=== PATIENT | male | born 1955 | race Caucasian/White ===

== ENCOUNTER 2017-03-29 19:08 | Emergency (ER) | payer OTHER ==
[2017-03-29 19:38] VITALS: BP 154/70
[2017-03-29] MEDS ORDERED: NS 0.9% 1000 ML* 1,000 ML IV ONE (19:44)
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
== END 2017-03-29 19:53 | disposition short-term general hospital (02) ==
LOC: UCEAST 19:08
DX: R41.82 Altered mental status, unspecified (principal); R00.1 Bradycardia, unspecified; R56.9 Unspecified convulsions; Z88.4 Allergy status to anesthetic agent
CPT/HCPCS: 93005; 96374; 99215; G0463

== ENCOUNTER 2017-03-29 20:07 | Observation (INO) | payer OTHER ==
[2017-03-29] MEDS ORDERED: NS 0.9% 1000 ML* 2,000 ML IV ONE (21:02)
--- NOTE | 2017-03-29 21:35 | RAD ---
INDICATION: Swelling at the right thumb after a fall COMPARISON: None. TECHNIQUE: 4 views of the right hand were obtained. FINDINGS: Involving the radial aspect proximal pole of the right thumb is still phalanx there is a minimally displaced fracture extending from the radial margin of the bone to the articulating surface of the proximal head. On the lateral view radiograph there is a minimally displaced fracture along the dorsal margin of the proximal pole of the right thumb distal phalanx. Remaining visualized bones are intact and appropriately aligned. IMPRESSION: Slightly displaced, comminuted fracture involving the proximal pole of the right thumb distal phalanx.
--- NOTE | 2017-03-29 21:36 | RAD ---
INDICATION: Syncope COMPARISON: None TECHNIQUE: PA and lateral views of the chest were obtained. FINDINGS: The heart and mediastinum are normal in size and contour. There is faint linear density at the left lung base. Otherwise the lungs are grossly clear. There is no evidence of large pleural effusion. Multilevel degenerative changes of the mid-level thoracic spine include loss of intervertebral disc height and mild anterior marginal osteophyte formation. There is no radiographic evidence of free air beneath the diaphragm IMPRESSION: POTENTIAL ATELECTASIS AT THE LEFT LUNG BASE WITHOUT OTHER ACUTE CARDIOPULMONARY ABNORMALITY.
--- NOTE | 2017-03-29 21:38 | RAD ---
INDICATION: Possible seizure activity. COMPARISON: None. TECHNIQUE: Contiguous axial sections of the brain were obtained from the skull base to the vertex without contrast. 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 Otherwise the ventricles, cisterns and sulci are within normal limits. The yusuf-white matter differentiation is adequately maintained and there is no sulcal effacement. No significant focal abnormality or mass effect is present. There is no evidence for intracranial hemorrhage. No significant focal osseous abnormality is present. The visualized portion of the paranasal sinuses and mastoid air cells appear clear. IMPRESSION: No CT apparent acute intracranial abnormality.
[2017-03-29 21:53] LABS: Hematocrit 40 % (42-52); Hemoglobin 13.3 g/dl (14.0-18.0); Mean Corpuscular HGB Conc 33 g/dl (31-36); Mean Corpuscular Hemoglobin 29 pg (27-31); Mean Corpuscular Volume 88 fL (80-94); Mean Platelet Volume 8 um3 (7.4-10.4); Red Blood Count 4.55 10^6/ul (4.0-5.4); Red Cell Distribution Width 14 % (10.5-15); White Blood Count 9.4 10^3/ul (3.5-10.8)
[2017-03-29 22:05] LABS: ALT 14 U/L (7-52); AST 19 U/L (13-39); Albumin 4.2 g/dL (3.2-5.2); Alcohol < 10 mg/dL (<10); Alkaline Phosphatase 42 U/L (34-104); Anion Gap 4 mmol/L (2-11); BUN/Creatinine Ratio 16.3 (8-20); Blood Urea Nitrogen 17 mg/dL (6-24); CO2 Carbon Dioxide 28 mmol/L (22-32); Calcium 8.8 mg/dL (8.6-10.3); Chloride 104 mmol/L (101-111); Creatine Kinase 274 U/L (10-223); EGFR African American 93.1 (>60); EGFR Non-African American 72.4 (>60); Globulin 2.4 g/dL (2-4); Glucose 115 mg/dL (70-100); Magnesium 1.9 mg/dL (1.9-2.7); Potassium 3.8 mmol/L (3.5-5.0); Sodium 136 mmol/L (133-145); Total Protein 6.6 g/dL (6.4-8.9)
[2017-03-29 22:13] LABS: TSH (Thyroid Stimulating Horm) 3.13 mcIU/mL (0.34-5.60)
[2017-03-29] MEDS ORDERED: Acetaminophen TAB* 325 MG PO PRN (22:47)
[2017-03-29] MEDS ORDERED: oxyCODONE/Acetamin 5/325 MG* TAB PO PRN (22:47)
[2017-03-29] MEDS ORDERED: NS 0.9% 1000 ML* 1,000 ML IV SCH (23:00)
[2017-03-30 03:22] LABS: Urine Bacteria Absent (Absent)
[2017-03-30 03:26] LABS: Urine Bilirubin Negative (Negative); Urine Glucose N (Negative); Urine Nitrite N (Negative)
--- NOTE | 2017-03-30 05:09 | HP ---
CC: Dr. Suh * HISTORY AND PHYSICAL: DATE OF ADMISSION: 03/29/17 PRIMARY CARE PROVIDER: Dr. Suh. CHIEF COMPLAINT: Syncope. HISTORY OF PRESENT ILLNESS: Mr. Dai is a 61-year-old male with no significant past medical history apart from 2 syncopal episodes in the past. One episode was over 35 years ago, another one was approximately 20 years ago. Today, Mr. Dai was in his usual state of health and he was putting a lawnmower over a door in his basement. He tripped and he fell scraping his left knee. He fell on his outstretched hand and he actually fractured his right thumb. After the fall, he stood up, felt weak. Approximately, 2 minutes later, he felt that he was going to "faint." He sat down in a chair and his observed that his jaw was clenched, his eyes rolled back, and he was overall "rigid." His stated that after a few second period that he stopped breathing for a few seconds but then he woke up. Although he was somewhat slow to respond, he was not confused to remember what happened. He had no chest pain or shortness of breath. There was no incontinence present. In the past, the patient had similar episodes over 20 years ago and over 35 years ago. Thirty-five years ago, he had a vagal episode when someone was receiving IV in a hospital and he was witnessing that. He was diagnosed with vagal episodes in the past and he stated that today the sensation that he felt lightheadedness and needing to sit down today was very similar to the other 2 episodes when had episodes of syncope. The patient was evaluated at [facility] and when his IV was placed and he also felt near syncopal and his heart rate slowed down. He came into the ED, direct admission from [facility] for further evaluation. Here he was diagnosed with right thumb fracture. He is going to be placed on overnight observation with diagnosis of syncope. PAST MEDICAL HISTORY: 1. 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 2. History of status post vasectomy in 1989. 3. History of deviated septum repair. 4. [place] tooth extraction. MEDICATIONS: No medications at home. FAMILY HISTORY: Positive for father with lymphoma. SOCIAL HISTORY: The patient denies any tobacco or drug use. He drinks alcohol rarely. 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 He lives with his , who is his surrogate. REVIEW OF SYSTEMS: Please see history of present illness. Apart from the above mentioned, the patient stated that he had been sleeping poorly, waking up during the nighttime several times, and is snoring. He stated that his primary care provider scheduled him for a sleep test that is going to happen within the next few weeks. Otherwise, he had been in his usual state of health. All the remaining 14 systems were reviewed with the patient and were otherwise negative. PHYSICAL EXAMINATION GENERAL: The patient is a very pleasant 61-year-old male, who is in no acute distress. Alert, awake, and oriented x3. VITAL SIGNS: Blood pressure /73, heart rate of 52 and regular, respiratory rate 14, oxygen saturation 100% on room air, temperature of 98.1. HEENT: Head: Atraumatic, normocephalic. Eyes: Pupils equal and reactive to light and accommodation. Oropharynx clear. Mucosa moist. NECK: Supple. No JVD. No bruits bilaterally. RESPIRATORY: Clear to auscultation bilaterally. CARDIOVASCULAR: Regular rate and rhythm. No murmur. ABDOMEN: Soft, nontender. Bowel sounds present in all 4 quadrants. EXTREMITIES: There is no edema. Pulses are +2 bilaterally. No clubbing or cyanosis. NEUROLOGIC: Speech clear. Cranial nerves II through XII are grossly intact. Motor strength is 5/5 bilaterally. SKIN: On evaluation of the skin, the patient has scrapped left knee and a tiny abrasion on his right thumb. The right thumb is already placed in an immobilizer by the ED physician. DIAGNOSTIC STUDIES/LAB DATA: Shows white blood cell count of 9.4, hemoglobin of 13.3, hematocrit of 40, and platelets of 196. Sodium was 136, potassium 3.8, chloride 104, carbon dioxide 28, BUN 17, creatinine 1.04. Liver function tests are unremarkable. Total CPK of 274, which is slightly higher than normal. TSH was 3.13. Troponin of 0. Portable chest x-ray showed impression: "Potential atelectasis of the left lung base without other acute cardiopulmonary abnormality." Brain CT impression: "No CT apparent acute intracranial abnormality." The patient's EKG showed sinus bradycardia with a heart rate of 52 beats per minute. No ST changes. Hand x-ray on the right, impression: "Slightly displaced comminuted fracture involving the proximal pole of the right thumb, distal phalanx." ASSESSMENT AND PLAN: 1. 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 The patient had history of vagal syncopes in the past. Nevertheless, he does have baseline bradycardia and he may be prone to vagal episodes more so due to that. At this point, the ED provider recommended for the patient to be placed on observation, which is going to be done. He is going to be placed on telemetry monitored bed and a repeat troponin is going to be obtained in the morning. I will also obtain an EEG, although I suspect that once more the patient's episode was mostly vagal. 2. In regards of the patient's fractured right thumb, splint is going to be provided. The patient was recommended to follow up with Dr. Thompson as outpatient. 3. For DVT prophylaxis, the patient is at moderate risk and heparin subcutaneously is going to be provided. 4. The patient's code status is full and his surrogate is his . TIME SPENT : Approximately 62 minutes was spent on admission of the patient, more than half of the time was spent [id number] with the patient during the interview and physical exam. [id number]/[facility] #: [id number] ANIBAL
[2017-03-30] MEDS: Heparin VIAL(*) 5000 UNITS/ML VIAL (FIVE THOUSAND) SUBCUT SCH ×2 (05:19→14:13)
--- NOTE | 2017-03-30 07:50 | ED ---
yMnor Broderick Rebecca, scribed for Frank Aguila MD on 03/29/17 at 2036 . Neurological HPI - HPI Summary HPI Summary: Pt is a 61 y/o M BIBA from [facility] who presents to ED s/p fall and suspected seizure activity. At approximately 1830 tonight he was walking up his basement stairs with a lawnmower when he tripped. His heard him yell and she came in , with him appearing to have fallen on all fours with negative LOC and head trauma. 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 After sitting down, he hunched over with his upper extremities shaking while "staring ahead." His tried to arouse him, unsuccessfully. She then states he momentarily stopped breathing, took a deep breath in and stated "I'm okay." Sx aggravated by nothing, alleviated by spontaneous resolution. Currently c/o slight R thumb pain and a L knee abrasion. Denies CP, SOB, AGUILERA, visual changes, hip pain, weakness of the UE and LE and slurred speech. Reports he just returned from a 2-day trip at the [employer] which is physically extremely demanding. Prior seizure about 35 years ago for which he has not been taking medication as well as a vaso-vagal episode in the 90s. - History of Current Complaint Chief Complaint: EDSeizure Stated Complaint: SEIZURES Hx Obtained From: Patient Onset/Duration: Started hours ago, Resolved Timing: Intermittent Episodes Lasting: - 1 episode Number of Seizures: 1 - Suspected Pain Intensity: 0 Pain Scale Used: 0-10 Numeric Aggravating: Nothing Alleviating: Spontanious Resolution Associated Signs and Symptoms: Negative: Visual Changes, Headache, Impaired Speech, Chest Pain, Shortness of Breath - Allergy/Home Medications Allergies/Adverse Reactions: Allergies Allergy/AdvReac Type Severity Reaction Status Date / Time Procaine [From Novocain] Allergy Unknown Unknown Verified 03/29/17 19:38 Reaction Details PMH/Surg Hx/FS Hx/Imm Hx Cardiovascular History: Denies: Hx Congestive Heart Failure, Hx Pacemaker/ICD Sensory History: Denies: Hx Hearing Aid Psychiatric History: Denies: Hx Panic Disorder - Surgical History Surgery Procedure, Year, and Place: DEVIATED SEPTUM 2001; SEVERAL ORAL SURGERIES WITH PERMANENT BRIDGES; CYST REMOVED FROM BACK Infectious Disease History: No Infectious Disease History: Denies: Traveled Outside the [place] in Last 30 Days - Family History Known Family History: Positive: Other - Negative: stroke Negative: Cardiac Disease - Social History Alcohol Use: Occasionally Substance Use Type: Reports: None Smoking Status (MU): Never Smoked Tobacco Review of Systems Positive: Other - NEGATIVE: visual changes Negative: Chest Pain Negative: Shortness Of Breath Positive: Arthralgia - R thumb pain; NEGATIVE: hip pain Positive: Other - L knee abrasion Neurological: Other - Episode of suspected seizure Negative: Headache, Weakness, Slurred Speech All Other Systems Reviewed And Are Negative: Yes Physical Exam - Summary Physical Exam Summary: The patient is well-nourished in no acute distress and in no acute pain. The skin is warm and dry and skin color reflects adequate perfusion. The pt has an abrasion over the left knee. HEENT: The head is normocephalic and atraumatic. There is no mar sign, raccoon sign or evidence of trauma. The pupils are equal and reactive. The conjunctivae are clear and without drainage. Nares are patent and without drainage. Mouth reveals moist mucous membranes and the throat is without erythema and exudate. The tongue is midline and there is no evidence of intra- oral laceration. The external ears are intact. The ear canals are patent and without drainage. The tympanic membranes are intact. Neck is supple with full range of motion and non-tender. There are no carotid bruits. There is no neck vein distension. Respiratory: Chest is non-tender. Lungs are clear to auscultation and breath sounds are symmetrical and equal. Cardiovascular: Hear is regular rhythm and bradycardic. There is no murmur or rub auscultated. There is no peripheral edema and pulses are symmetrical and equal. Abdomen: The abdomen is soft and non-tender. There are normal bowel sounds heard in all four quadrants and there is no organomegaly palpated. There are no signs of incontinence. Musculoskeletal: There is no back pain noted. Extremities have full range of motion and the hips are non-tender. There is good capillary refill. There is no peripheral edema or calf tenderness elicited. The R thumb has marked swelling and a subinguinal hematoma and tenderness under the right thumbnail with no ligament laxity. The thenar eminence is also tender nad he has FROM of the R thumb, including circumduction, flexion and extension. Neurological: Patient is alert and oriented to person, place and time. He has no facial droop. The patient has symmetrical motor strength in all four extremities with no focal motor deficiency noted. Cranial nerves are grossly intact. Deep tendon reflexes are symmetrical and equal in all four extremities. Psychiatric: The patient has an appropriate affect and does not exhibit any anxiety or depression. Triage Information Reviewed: Yes Vital Signs On Initial Exam: Initial Vitals Temp Pulse Resp BP Pulse Ox 96.8 F 62 20 152/72 98 03/29/17 20:11 03/29/17 20:11 03/29/17 20:11 03/29/17 20:11 03/29/17 20:11 Vital Signs Reviewed: Yes - Clair Coma Scale Best Eye Response: 4 - Spontaneous Best Motor Response: 6 - Obeys Commands Best Verbal Response: 5 - Oriented Glascow Coma Scale Comments: 15 Procedures - Splinting Location: R thumb Pre-Made Type: XL thumb splica Splint: thumb spica - Right Pre-Proc Neuro Vasc Exam: normal Post-Proc Neuro Vasc Exam: normal Diagnostics - Vital Signs Vital Signs Temp Pulse Resp BP Pulse Ox 03/29/17 20:11 96.8 F 62 20 152/72 98 - Laboratory Lab Results: Lab Results 03/29/17 03/29/17 03/29/17 Range/Units 21:35 21:35 21:35 WBC 9.4 (3.5-10.8) 10^3/ul RBC 4.55 (4.0-5.4) 10^6/ul Hgb 13.3 L (14.0-18.0) g/dl Hct 40 L (42-52) % MCV 88 (80-94) fL MCH 29 (27-31) pg MCHC 33 (31-36) g/dl RDW 14 (10.5-15) % Plt Count 196 (150-450) 10^3/ul MPV 8 (7.4-10.4) um3 Neut % (Auto) 79.8 (38-83) % Lymph % (Auto) 14.5 L (25-47) % Montezuma % (Auto) 4.7 (1-9) % Eos % (Auto) 0.6 (0-6) % Baso % (Auto) 0.4 (0-2) % Absolute Neuts (auto) 7.5 (1.5-7.7) 10^3/ul Absolute Lymphs (auto) 1.4 (1.0-4.8) 10^3/ul Absolute Monos (auto) 0.4 (0-0.8) 10^3/ul Absolute Eos (auto) 0.1 (0-0.6) 10^3/ul Absolute Basos (auto) 0 (0-0.2) 10^3/ul Absolute Nucleated RBC 0 10^3/ul Nucleated RBC % 0 INR (Anticoag Therapy) (0.89-1.11) Sodium 136 (133-145) mmol/L Potassium 3.8 (3.5-5.0) mmol/L Chloride 104 (101-111) mmol/L Carbon Dioxide 28 (22-32) mmol/L Anion Gap 4 (2-11) mmol/L BUN 17 (6-24) mg/dL Creatinine 1.04 (0.67-1.17) mg/dL Est GFR ( Amer) 93.1 (>60) Est GFR (Non-Af Amer) 72.4 (>60) BUN/Creatinine Ratio 16.3 (8-20) Glucose 115 H (70-100) mg/dL Lactic Acid 0.7 (0.5-2.0) mmol/L Calcium 8.8 (8.6-10.3) mg/dL Magnesium 1.9 (1.9-2.7) mg/dL Total Bilirubin 0.80 (0.2-1.0) mg/dL AST 19 (13-39) U/L ALT 14 (7-52) U/L Alkaline Phosphatase 42 (34-104) U/L Total Creatine Kinase 274 H (10-223) U/L Troponin I 0.00 (<0.04) ng/mL B-Natriuretic Peptide ( - 100) pg/mL Total Protein 6.6 (6.4-8.9) g/dL Albumin 4.2 (3.2-5.2) g/dL Globulin 2.4 (2-4) g/dL Albumin/Globulin Ratio 1.8 (1-3) TSH 3.13 (0.34-5.60) mcIU/mL Serum Alcohol < 10 (<10) mg/dL 03/29/17 03/29/17 Range/Units 21:35 21:35 WBC (3.5-10.8) 10^3/ul RBC (4.0-5.4) 10^6/ul Hgb (14.0-18.0) g/dl Hct (42-52) % MCV (80-94) fL MCH (27-31) pg MCHC (31-36) g/dl RDW (10.5-15) % Plt Count (150-450) 10^3/ul MPV (7.4-10.4) um3 Neut % (Auto) (38-83) % Lymph % (Auto) (25-47) % Montezuma % (Auto) (1-9) % Eos % (Auto) (0-6) % Baso % (Auto) (0-2) % Absolute Neuts (auto) (1.5-7.7) 10^3/ul Absolute Lymphs (auto) (1.0-4.8) 10^3/ul Absolute Monos (auto) (0-0.8) 10^3/ul Absolute Eos (auto) (0-0.6) 10^3/ul Absolute Basos (auto) (0-0.2) 10^3/ul Absolute Nucleated RBC 10^3/ul Nucleated RBC % INR (Anticoag Therapy) 0.90 (0.89-1.11) Sodium (133-145) mmol/L Potassium (3.5-5.0) mmol/L Chloride (101-111) mmol/L Carbon Dioxide (22-32) mmol/L Anion Gap (2-11) mmol/L BUN (6-24) mg/dL Creatinine (0.67-1.17) mg/dL Est GFR ( Amer) (>60) Est GFR (Non-Af Amer) (>60) BUN/Creatinine Ratio (8-20) Glucose (70-100) mg/dL Lactic Acid (0.5-2.0) mmol/L Calcium (8.6-10.3) mg/dL Magnesium (1.9-2.7) mg/dL Total Bilirubin (0.2-1.0) mg/dL AST (13-39) U/L ALT (7-52) U/L Alkaline Phosphatase (34-104) U/L Total Creatine Kinase (10-223) U/L Troponin I (<0.04) ng/mL B-Natriuretic Peptide 23 ( - 100) pg/mL Total Protein (6.4-8.9) g/dL Albumin (3.2-5.2) g/dL Globulin (2-4) g/dL Albumin/Globulin Ratio (1-3) TSH (0.34-5.60) mcIU/mL Serum Alcohol (<10) mg/dL Result Diagrams: 03/29/17 21:35 03/29/17 21:35 Lab Statement: Any lab studies that have been ordered have been reviewed, and results considered in the medical decision making process. - Radiology Hand XR Xray Interpretation: Positive (See Comments) - Slightly displaced, comminuted fracture involving the proximal pole of the right thumb distal phalanx. ED physician reviewed radiology report and agrees. Radiology Interpretation Completed By: Radiologist CXR Xray Interpretation: Positive (See Comments) - POTENTIAL ATELECTASIS AT THE LEFT LUNG BASE WITHOUT OTHER ACUTE CARDIOPULMONARY ABNORMALITY. ED phsyician reviewed radiology report and agrees. Radiology Interpretation Completed By: Radiologist - CT Brain CT CT Interpretation: No Acute Changes - No CT apparent acute intracranial abnormality. ED physician reviewed radiology report and agrees. CT Interpretation Completed By: Radiologist - EKG 2125 Cardiac Rate: Bradycardia - 52 bpm EKG Rhythm: Sinus Bradycardia EKG Interpretation: Normal axis Re-Evaluation - Re-Evaluation First Eval Re-Evaluation Time: 22:31 Comment: Discussed results with the pt. Second Eval Re-Evaluation Time: 22:35 Comment: Splinted the R thumb Course/Dx - Course Assessment/Plan: Pt is a 61 y/o M BIBA from [facility] who presents to ED s/p fall and suspected seizure activity. At approximately 1830 tonight he was walking up his basement stairs with a lawnmower when he tripped. His heard him yell and she came in, with him appearing to have fallen on all fours with negative LOC and head trauma. 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 After sitting down, he hunched over with his upper extremities shaking while "staring ahead." His tried to arouse him, unsuccessfully. She then states he momentarily stopped breathing, took a deep breath in and stated "I'm okay." Sx aggravated by nothing, alleviated by spontaneous resolution. Currently c/o slight R thumb pain and a L knee abrasion. Denies CP, SOB, AGUILERA, visual changes, hip pain, weakness of the UE and LE and slurred speech. Reports he just returned from a 2-day trip at the [facility] which is physically extremely demanding. Prior seizure about 35 years ago for which he has not been taking medication as well as a vaso-vagal episode in the 90s. Hand XR reveals a slightly displaced, comminuted fracture involving the proximal pole of the right thumb distal phalanx. CXR reveals potential atelectasis at the [facility] base. Brain CT is negative. EKG is sinus bradycardia without STEMI. In the ED course, pt received fluids. Discussed care of pt with Dr. Jossy Joaquin who accepts pt for admission. Pt will be admitted with Dx of R thumb fracture and syncope. He understands and agrees. Elevated BP noted and advised to f/u with PCP. - Differential Dx Differential Diagnoses Neuro: Positive: Coronary Artery Disease, Hypovolemia, Seizure Disorder, Other - syncope, seizure, right thumb fracture - Diagnoses Provider Diagnoses: Syncope, Fracture of thumb, right, closed - Physician Notifications Discussed Care Of Patient With: Jossy Joaquin Time Discussed With Above Provider: 22:35 Instructed by Provider To: Other - Accepts pt for admission Discharge - Discharge Plan Condition: Stable Disposition: ADMITTED TO [facility] The documentation as recorded by the Mynor rosas Rebecca accurately reflects the service I personally performed and the decisions made by me, Frank Aguila MD.
--- NOTE | 2017-03-30 09:45 | ECHO ---
Patient: ZIA BURNETT [facility] Rec#: [id number] : 1955 Date: 03/30/2017 Age: 61y Height: 182.88 cm / 72.0 in Weight: 97.52 kg / 214.9 lbs Sex: M BSA: 2.2 Room#: 446 Admit Date#: 03/29/2017 Type: Inpatient Referring: Jossy Joaquin MD Reading: Yg Matias MD Patient Safety Manager: Jammie Wilson RDCS,RDMS CC: Carole Peter MD Transthoracic Echocardiogram Indication: Syncope BP: 125/69 HR: 56 Rhythm: Bradycardia Findings History: Previously healthy Technical Comments: The study quality is good. Completed 924 Left Ventricle: The left ventricular chamber size is normal. Mild concentric left ventricular hypertrophy is observed. Global left ventricular wall motion and contractility are within normal limits. There is normal left ventricular systolic function. The estimated ejection fraction is 55-60%. Normal left ventricular diastolic filling is observed. Left Atrium: The left atrial chamber size is normal. Right Ventricle: The right ventricular chamber size and systolic function are within normal limits. Right Atrium: The right atrial cavity size is normal. Aortic Valve: The aortic valve is trileaflet. There is no evidence of aortic valve thickening. Systolic excursion of the aortic valve is normal. There is a trace of aortic regurgitation. There is no evidence of aortic stenosis. Mitral Valve: The mitral valve leaflets appear normal. There is a trace of mitral regurgitation. There is no evidence of mitral stenosis. Tricuspid Valve: The tricuspid valve leaflets are normal. There is trace tricuspid regurgitation. Unable to estimate the right ventricular systolic pressure. Pulmonic Valve: The pulmonic valve appears normal. There is a trace pulmonic regurgitation. Pericardium: There is no significant pericardial effusion. Aorta: The aortic root appears normal. There is no dilatation of the aortic arch. Pulmonary Artery: The main pulmonary artery appears normal. Venous: The inferior vena cava is dilated. There is a greater than 50% respiratory change in the inferior vena cava dimension. Conclusions Mild concentric left ventricular hypertrophy is observed. There is normal left ventricular systolic function. The estimated ejection fraction is 55-60%. Normal left ventricular diastolic filling is observed. No significant valvular disease: There is a trace of aortic regurgitation. There is a trace of mitral regurgitation. There is trace tricuspid regurgitation. There is a trace pulmonic regurgitation. No reports of prior studies offered for comparison. Measurements Name Value Normal Range RVIDd (AP) 2D 2.8 cm (0.9 - 2.6) RAd ISD 4CH 4.6 cm (3.4 - 4.9) RA (A4C)W 3.8 cm (2.9 - 4.6) IVSd (2D) 1.3 cm (0.6 - 1) LVPWd (2D) 1.1 cm (0.6 - 1) LVIDd (2D) 5.1 cm (3.6 - 5.4) LVIDs (2D) 2.8 cm - LV FS (2D) 45 % (25 - 45) Aortic Annulus 2.3 cm (1.4 - 2.6) Ao root diameter (2D) 3.3 cm (2.1 - 3.5) Ascending Ao 3 cm (2.1 - 3.4) Aortic arch 2.7 cm (1.8 - 3.4) LA dimension (AP) 2D 3.9 cm (2.3 - 3.8) LAd ISD 4CH 4.5 cm (2.9 - 5.3) LA ISD 4CH W 3.7 cm (2.5 - 4.5) Name Value Normal Range LA ESV SP 4CH (A/L) 34.23 ml - LA ESV SP 2CH (A/L) 72.55 ml - LA ESV BP (A/L) 53.75 ml - LA ESV BP (A/L) index 24 ml/m2 - LA ESV SP 4CH (MOD) 30.4 ml - LA ESV SP 2CH (MOD) 68.58 ml - Name Value Normal Range MV E-wave Vmax 0.7 m/sec - MV deceleration time 187 msec - MV A-wave Vmax 0.6 m/sec - MV E:A ratio 1.2 ratio - P. vein S-wave Vmax 0.5 m/sec - P. vein D-wave Vmax 0.4 m/sec - P. vein S:D Vmax ratio 1.5 ratio - P. vein A-wave duration 90 msec - LV lateral e' Vmax 0.1 m/sec - LV E:e' lateral ratio 7 ratio - Name Value Normal Range AV Vmax 1.3 m/sec - AV VTI 29 cm - AV peak gradient 7 mmHg - AV mean gradient 3.1 mmHg - LVOT Vmax 0.9 m/sec - LVOT VTI 21.5 cm - LVOT peak gradient 3.2 mmHg - LVOT mean gradient 1.8 mmHg - MAGALIE Vmax 0.7 m/sec - Name Value Normal Range RAP 8 mmHg - IVC diameter 2.4 cm - Name Value Normal Range PV Vmax 0.6 m/sec - PV peak gradient 1.4 mmHg -
[2017-03-30 18:10] VITALS: BP 151/74
--- NOTE | 2017-03-31 05:03 | EEG ---
CC: Dr. Carole Peter; Dr. Joaquin * ELECTROENCEPHALOGRAPHY: DATE OF STUDY: 03/30/17 - ROOM #446 The patient is an inpatient. ORDERING PHYSICIAN: Dr. Joaquin. HISTORY: This is a 61-year-old man who came into the emergency department after a syncopal episode. He states he has had 2 other episodes similar to this. One was 35 years ago and the other 20 years ago. 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 Approximately 2 minutes later, he felt like he was going to faint and sat down in a chair. His saw his jaw clench and his eyes roll back and he became rigid all over. He was thought to have stopped breathing for a few seconds. He was slow to respond when he woke up , but not confused and remembered what happened. His similar episodes were diagnosed as vagal episodes. One happened while watching someone get an IV in the hospital. EEG is requested to evaluate for epileptiform abnormalities. MEDICATIONS: 1. Percocet. 2. Tylenol. 3. Heparin. DESCRIPTION OF PROCEDURE: The waking background showed appropriate organization with clearly defined anterior to posterior voltage and frequency gradients. There was a well-defined posterior dominant rhythm of 10 Hz, which was symmetrical and showed normal reactivity. Anteriorly, there was an expected pattern of lower voltage, irregular, mixed faster frequencies. Attenuation of the occipital rhythm accompanied drowsiness. The sleep background was appropriately organized with well-developed sleep spindles and vertex waves. These sleep transients were of appropriate morphology and were bilaterally synchronous and symmetrical. The patient was asleep at the beginning of the recording, and shortly thereafter a normal arousal pattern was observed with the above referenced waking background then emerging. Throughout the recording, there were no epileptiform discharges, focal features , paroxysmal features, or significant interhemispheric asymmetries. IMPRESSION: This is a normal waking and sleep EEG. There are no epileptiform abnormalities. [id number] #: [id number] MTDD
== END 2017-03-30 17:25 | disposition home or self-care (01) ==
LOC: ED 20:07 → MEDTELE 22:46
PROVIDERS: ADMIT Internal Medicine; ATTEND Internal Medicine
DX: R55 Syncope and collapse (principal); Z88.8 Allergy status to other drugs, medicaments and biological substances; S62.521A Displaced fracture of distal phalanx of right thumb, initial encounter for closed fracture; W18.30XA Fall on same level, unspecified, initial encounter; Y92.094 Garage of other non-institutional residence as the place of occurrence of the external cause; I51.7 Cardiomegaly; R00.1 Bradycardia, unspecified
CPT/HCPCS: 36415; 70450; 71020; 80053; 80320; 81003; 82550; 83605; 83735; 83880; 84443; 84484; 85025; 85610; 93005; 93306; 95819; 96360; 96361; 99284; A9270-GY; G0378; G0480; J1644